=== PATIENT | male | born 1960 | race Caucasian/White ===

== ENCOUNTER 2016-09-10 05:37 | Outpatient (CLI) | payer BC ==
[~2016-09-10] VITALS: Ht 185.4 cm; Wt 87.5 kg
[~2016-09-10 05:37] MED LIST: ACHD5005 PO; ASP81CT PO; ATOR40TA PO; CYCL10TA9 PO; EZET1TAB44; HYDR1TAB PO; MELO-195 PO; MULT-608 PO; TMSL.4C PO; TRAM50TA2 PO
== END 2016-09-10 16:06 ==
LOC: PREOP 05:37
PROVIDERS: ATTEND Surgery Pediatric Surgery
DX: Z01.818 Encounter for other preprocedural examination (principal); Z12.11 Encounter for screening for malignant neoplasm of colon; Z86.010 Personal history of colon polyps

== ENCOUNTER 2016-09-12 09:55 | Day surgery (SDC) | payer BC ==
--- OUTSIDE RECORDS SUMMARY | 2016-09-12 09:59 | XMS REPORT | Continuity of Care Document ---
Author Author [facility] [address] Organization [facility] [address] Address Unknown Phone Unavailable Care Team Providers Care Forestry Laborer Name Role Phone VERONIKA CHERY DO PCP Insurance Providers Payer Name Policy Number Subscriber Name Relationship [facility] [id number] Chris Montejo 18 Self / Same As Patient Advance Directives Directive Response Recorded Date/Time Advance Directives No 09/10/16 4:00pm Organ Donor Yes 09/10/16 4:00pm Resuscitation Status Full Code 09/10/16 4:00pm Problems No problem information available. Medications Current Home Medications Medication Dose Units Route Directions Days/Qty Instructions Start Date Multivitamins 1 Tab 1 Tab Oral Daily 04/25/09 Meloxicam (Mobic) 15 Mg 15 Mg Oral Daily 04/25/09 Tramadol Hcl 50 Mg 50 Mg Oral Twice A Day as needed for Pain Aspirin 81 Mg 81 Mg Oral Daily 04/25/09 Atorvastatin Calcium 40 Mg 40 Mg Oral Bedtime 04/25/11 Past Home Medications Medication Directions Ordered Status Ezetimibe/Simvastatin 1 Each Tablet, 04/25/09 Discontinued Tamsulosin Hcl 0.4 Mg Cap, 0.4 Mg Oral Daily 04/25/09 Discontinued Acetaminophen/Hydrocodone Bitart 1 Each Tablet, 2 Each Oral Q6hr Prn Discontinued Cyclobenzaprine Hcl (Flexeril) 10 Mg Tablet, 1 Each Oral Q8hr Prn 04/26/11 Discontinued Acetaminophen/Hydrocodone Bitart 1 Each Tablet, 1 - 2 Each Oral Every 6 Hours as needed 04/26/11 Discontinued Social History Social History Problem Response Recorded Date/Time Alcohol Use Occasionally Uses 09/10/2016 4:00pm Recreational Drug Use No 09/10/2016 4:00pm Recent Foreign Travel No 09/10/2016 4:00pm Recent Infectious Disease Exposure No 09/10/2016 4:00pm Smoking Status Former Smoker 09/10/2016 4:00pm Recent Hopitalizations No 09/10/2016 4:00pm Query Response Start Date Stop Date Smoking Status Former Smoker Hospital Discharge Instructions No hospital discharge instructions. Plan of Care Discharge Date 09/10/16 4:06pm Prescriptions See Medication Section Functional Status No functional status results. Allergies, Adverse Reactions, Alerts Allergen Type Severity Reaction Status Last Updated Penicillins ([id number]) Allergy Mild Active 04/25/09 Immunizations No immunization records. Vital Signs Acute Vital Signs Vital Response Date/Time Height (Feet) 6 feet 09/10/2016 3:59pm Height (Inches) 1.00 inches 09/10/2016 3:59pm Height (Calculated Centimeters) 185.697811 cm 09/10/2016 3:59pm Weight (Pounds) 193 pounds 09/10/2016 3:59pm Weight (Ounces) 0.0 oz 09/10/2016 3:59pm Weight (Calculated Grams) 58483.33 gm 09/10/2016 3:59pm Weight (Calculated Kilograms) 87.541729 kilograms 09/10/2016 3:59pm Calculated BMI 25.5 09/10/2016 3:59pm Results No known relevant diagnostic tests, laboratory data and/or discharge summary. Procedures No known history of procedures. Encounters Encounter Location Arrival/Admit Date Discharge/Depart Date Attending Provider Registered Clinic [facility] [address] 09/10/16 5:37am JAYNE GRUBER MD
--- OUTSIDE RECORDS SUMMARY | 2016-09-12 09:59 | XMS REPORT | Continuity of Care Document ---
Author Author [facility] Organization [facility] Address Unknown Phone Unavailable Care Team Providers Care Political Consultant Name Role Phone VERONIKA CHERY DO PCP Insurance Providers Payer Name Policy Number Subscriber Name Relationship [facility] [id number] Chris Montejo 18 Self / Same As [...] Type Severity Reaction Status Last Updated Penicillins ([id number]) Allergy Mild Active 04/25/09 Immunizations No immunization records. Vital Signs Acute Vital Signs Vital Response Date/Time Height (Feet) 6 feet 09/10/2016 3:59pm Height (Inches) 1.00 inches 09/10/2016 3:59pm Height (Calculated Centimeters) 185.462315 cm 09/10/2016 3:59pm Weight (Pounds) 193 pounds 09/10/2016 3:59pm Weight (Ounces) 0.0 oz 09/10/2016 3:59pm Weight (Calculated Grams) 73403.33 gm 09/10/2016 3:59pm Weight (Calculated Kilograms) 87.775686 kilograms 09/10/2016 3:59pm Calculated BMI 25.5 09/10/2016 3:59pm Results No known relevant diagnostic tests, laboratory data and/or discharge summary. Procedures No known history of procedures. Encounters Encounter Location Arrival/Admit Date Discharge/Depart Date Attending Provider Registered Clinic [facility] 09/10/16 5:37am JAYNE GRUBER MD
--- NOTE | 2016-09-12 10:03 | Conscious Sedation/ASA ---
Conscious Sedation Pre-Proced Time Reviewed: 10:00 ASA Class: 2 Airway Mallampati Classification: ([place] appropriate class) I. II. III, IV Lungs Heart ASA score ASA 1: a normal healthy patient ASA 2: a patient with a mild systemic disease (mid diabetes, controlled hypertension, obesity ASA 3: a patient with a severe systemic disease that limits activity (angina , COPD, prior Myocardial infarction) ASA 4: a patient with an incapacitating disease that is a constant threat to life (CHF, renal failure) ASA 5: a moribund patient not expected to survive 24 hrs. (ruptured aneurysm) ASA 6: a declared brain patient whose organs are being harvested. For emergent operations, add the letter E after the classification Grade 2 Sedation Plan: Analgesia, Amnesia, Plan communicated to team members, Discussed options with patient/fam, Discussed risks with patient/fam Note The patient is an appropriate candidate to undergo the planned procedure, sedation, and anesthesia. The patient immediately re-assessed prior to indication. JAYNE GRUBER MD Sep 12, 2016 10:03 am
--- NOTE | 2016-09-12 10:03 | Progress Note-Pre Operative ---
Pre-Operative Progress Note H&P Reviewed The H&P was reviewed, patient examined and no changes noted. Date H&P Reviewed: Sep 12, 2016 Time H&P Reviewed: 10:00 Pre-Operative Diagnosis: history colon polyp JAYNE GRUBER MD Sep 12, 2016 10:03 am
[2016-09-12 10:10] VITALS: BP 124/76
[2016-09-12] MEDS ORDERED: morphine INJ 10 MG/ML 1ML (SYR OR VIAL) IV PRN (10:15)
[2016-09-12] MEDS ORDERED: ONDANSETRON 4 MG/2 ML (SDV) Z0FRAN IV PRN (10:15)
[2016-09-12] MEDS ORDERED: ACETAMINOPHEN 325 MG TABLET/CAPLET (TYLENOL) PO PRN (10:15)
[2016-09-12] MEDS ORDERED: HYDROcodone/APAP 5 MG/325 MG (LORTAB) TAB PO PRN (10:15)
[2016-09-12] MEDS ORDERED: NS IV 500 ML 500 ML ONE ×2 (10:18→11:08)
[2016-09-12] MEDS ORDERED: NS IV 500 ML 500 ML IV ONE (10:30)
[2016-09-12] MEDS ORDERED: NALOXONE 0.4 MG/ML 1 ML (NARCAN) VIAL IVP PRN (10:30)
[2016-09-12] MEDS ORDERED: FLUMAZENIL (ROMAZICON) 0.1 MG/ML 5 ML VIAL INJ PRN (10:30)
[2016-09-12] MEDS ORDERED: fentaNYL INJECTION 100 MCG/2 ML AMP ONE ×3 (10:41→11:17)
[2016-09-12] MEDS ORDERED: LIDOCAINE JELLY 2% (XYLOCAINE) 5 ML TUBE ONE (10:41)
[2016-09-12] MEDS ORDERED: MIDAZOLAM 2 MG/2 ML (VERSED) VIAL ONE ×4 (10:42)
[2016-09-12] MEDS: fentaNYL INJECTION 100 MCG/2 ML AMP IVP PRN ×5 (11:01→11:20)
[2016-09-12] MEDS: MIDAZOLAM 2 MG/2 ML (VERSED) VIAL IVP PRN ×4 (11:04→11:17)
[2016-09-12] MEDS ORDERED: NS IV 500 ML 500 ML IV PRN (11:20)
--- NOTE | 2016-09-12 11:39 | Progress Note-Post Operative ---
Post-Operative Progess Note Pre-Operative Diagnosis history colon polyp Post-Operative Diagnosis chronic stage 2 ext and int hemorrhoids. Post-Op Procedure Note Date of Procedure: Sep 12, 2016 Name of Procedure: Colonoscopy Anesthesia Type CS Estimated blood loss (mL): JAYNE Gordon MD Sep 12, 2016 11:39 am
--- NOTE | 2016-09-12 11:40 | Discharge Inst-Surgical ---
D/C Lap Instructions-YASMANI Follow Up 10 years Activity as tolerated High Fiber Diet 25g or more per day Avoid Alcohol, Caffeine, Spicy Teague and Acid foods. Drink 64 fluid oz or more of fluids per day. Symptoms to Report: Fever over 101 degree F, Nausea/Vomiting If any problems/questions: Contact your physician or go to Emergency Room JAYNE GRUBER MD Sep 12, 2016 11:40 am
[2016-09-12] MEDS ORDERED: LIDOCAINE JELLY 2% (XYLOCAINE) 5 ML TUBE TOP ONE (11:45)
[2016-09-12 12:10] VITALS: BP 119/68
[2016-09-12 12:35] VITALS: BP 124/66
--- NOTE | 2016-09-14 12:16 | OPERATIVE REPORT ---
PROCEDURE PHYSICIAN: JAYNE SHELTON DATE OF PROCEDURE: 09/12/2016 ATTENDING PRIMARY CARE PHYSICIAN: Dr. Poly Grimaldo. PREOPERATIVE DIAGNOSIS: History of colon polyp. POSTOPERATIVE DIAGNOSES: 1. Chronic, stage II external and internal hemorrhoids. 2. The remainder of the rectum and colon appeared normal. PROCEDURE: Colonoscopy. SURGEON: Dr. Shelton. ANESTHESIA: Conscious sedation. ESTIMATED BLOOD LOSS: Minimal. FINDINGS: 1. Chronic, stage II external and internal hemorrhoids, not actively edematous or inflamed and no bleeding. 2. The remainder of the rectum and colon were normal. There were no polyps identified. DISPOSITION: The patient tolerated the procedure well. Mr. Kapil Montejo is a 56-year-old male in need of a follow-up colonoscopy. His first colonoscopy was March 2011 for change in bowel habits. He does work nights and he does, he does do swing shifts with day and night cycles on a monthly basis, which does cause a significant amount of stress, which does cause these change of bowel habits as well. During the colonoscopy in 2010, he was found to have external and internal hemorrhoids as well as small solitary rectal polyp less than 1 cm size which was biopsied and found to be benign tubular villous adenoma. PROCEDURE: The patient was brought to the endoscopy suite, laid in left lateral decubitus position. After adequate IV pain and sedative medications and conscious sedation anesthesia, a digital rectal examination was performed. Chronic, stage II external and internal hemorrhoids were identified, which were not actively edematous or inflamed and no bleeding. Normal sphincter tone was felt and there were no palpable masses. Prostate gland was palpable and appeared normal. The endoscope was then intubated into the anus and rectum gently insufflated. The endoscope was then advanced through the valves of [place] the rectum with no polyps or any neoplasms identified. We then proceeded through the sigmoid colon where no diverticulosis identified. The endoscope was then advanced through the remainder of the descending, transverse, and ascending colon to the cecum. These segments were normal as well. The prep was slightly poor; however, this was irrigated and suctioned as well as possible with no polyps identified. The endoscope was then slowly withdrawn while taking a second look and suctioning residual air with no additional findings. The patient tolerated the procedure well. We will have him continue with medical management with a high fiber diet with at least 30 grams of fiber per day, as well as at least 64 fluid ounces of water daily to promote soft stools on a daily basis and to prevent episodes of diarrhea and constipation. He does not need another colonoscopy for another 10 years; however, sooner for any problems arise. Job ID: [id number] Dictated Date: 09/12/2016 11:38:22 Terrazzo Polisher Date: 09/14/2016 12:10:38 / trent
== END 2016-09-12 12:40 | disposition home or self-care (01) ==
LOC: ENDO 09:55
PROVIDERS: ATTEND Surgery Pediatric Surgery
DX: Z12.11 Encounter for screening for malignant neoplasm of colon (principal); K64.1 Second degree hemorrhoids; Z86.010 Personal history of colon polyps